=== PATIENT | male | born 1995 | race Caucasian/White ===

== ENCOUNTER 2021-07-26 09:50 | Emergency (ER) | payer OTHER ==
[~2021-07-26] VITALS: Ht 182.9 cm; Wt 68.0 kg
[2021-07-26 10:14] VITALS: BP 122/68
[2021-07-26] MEDS ORDERED: NALO4SPR BNOSTRILS (12:03)
== END 2021-07-26 12:11 ==
LOC: ER 10:00
DX: F19.10 Other psychoactive substance abuse, uncomplicated (principal); F11.10 Opioid abuse, uncomplicated; F15.10 Other stimulant abuse, uncomplicated; Z60.2 Problems related to living alone